=== PATIENT | male | born 2000 | race Caucasian/White ===

== ENCOUNTER 2022-02-22 18:32 | Emergency (ER) | payer OTHER ==
[~2022-02-22] VITALS: Wt 54.4 kg
[~2022-02-22 18:32] MED LIST: AMOXICILLIN500 MG PO; KEFLEX250 MG/5 M PO; MOTRIN400 MG PO
[2022-02-22 18:38] VITALS: BP 112/56
[2022-02-22 20:20] LABS: BASO % 0.2 % (0.0-1.0); EOS % 0.4 % (1.0-4.0); LYMPH # 1.3 10*3/uL (1.3-4.4); MEAN CORPUSCULAR HGB 30.1 pg (27.0-31.0); MEAN CORPUSCULAR HGB CONC 34.6 g/dl (33.0-37.0); MEAN PLATELET VOLUME 10.2 fl (9.6-12.3); MONO # 0.5 10*3/uL (0.1-1.0); MONO % 4.6 % (3.0-9.0); NEUT # 8.9 10*3/uL (2.3-7.9); NEUT % 82.5 % (47.0-73.0); PLATELET COUNT AUTOMATED 209 10*3/uL (130-400); RED BLOOD COUNT 4.71 10*6/uL (4.50-5.90); RED CELL DISTRI WIDTH 11.8 % (0-14.5); WHITE BLOOD COUNT 10.8 10*3/uL (4.8-10.8)
[2022-02-22 20:35] LABS: ALKALINE PHOSPHATASE 158 U/L (45-117); BUN 6 mg/dl (7-24); CHLORIDE 108 mmol/L (98-107); POTASSIUM 3.7 mmol/L (3.5-5.1); SGOT/AST 15 IU/L (3-35); SGPT/ALT 22 U/L (12-78); SODIUM 141 mmol/L (136-145); TOTAL PROTEIN 7.5 gm/dL (6.4-8.2)
[2022-02-22] MEDS ORDERED: AMOXICILLIN500 M2 PO (23:18)
== END 2022-02-22 23:25 | disposition home or self-care (01) ==
LOC: ED 18:32
PROVIDERS: Emergency Medicine
DX: K04.7 Periapical abscess without sinus (principal); K08.89 Other specified disorders of teeth and supporting structures

== ENCOUNTER → 2022-05-22 | Outpatient (CLI) | payer OTHER ==
[~2022-05-22] MED LIST changes: +AMOXICILLIN500 M2 PO
[2022-05-22 16:09] LABS: BASO % 0.8 % (0.0-1.0); EOS # 0.1 10*3/uL (0.0-0.4); EOS % 1.3 % (1.0-4.0); HEMATOCRIT 38.5 % (42.0-52.0); LYMPH # 1.4 10*3/uL (1.3-4.4); LYMPH % 36.6 % (27.0-41.0); MEAN CELL VOLUME 88.5 fl (80.0-94.0); MEAN CORPUSCULAR HGB 30.3 pg (27.0-31.0); MEAN CORPUSCULAR HGB CONC 34.3 g/dl (33.0-37.0); MEAN PLATELET VOLUME 10.5 fl (9.6-12.3); MONO # 0.2 10*3/uL (0.1-1.0); MONO % 5.2 % (3.0-9.0); NEUT # 2.2 10*3/uL (2.3-7.9); NEUT % 55.8 % (47.0-73.0); PLATELET COUNT AUTOMATED 173 10*3/uL (130-400); RED BLOOD COUNT 4.35 10*6/uL (4.50-5.90); RED CELL DISTRI WIDTH 11.9 % (0-14.5); WHITE BLOOD COUNT 3.9 10*3/uL (4.8-10.8)
[2022-05-22 16:24] LABS: ALKALINE PHOSPHATASE 128 U/L (45-117); BUN 7 mg/dl (7-24); CHLORIDE 109 mmol/L (98-107); CREATININE 0.77 mg/dL (0.70-1.30); POTASSIUM 3.8 mmol/L (3.5-5.1); SGOT/AST 8 IU/L (3-35); SGPT/ALT 13 U/L (12-78); SODIUM 141 mmol/L (136-145); T3 UPTAKE 35 % (31-39); THYROXINE (T4) TOTAL 10.9 ug/dl (4.5-12.1); TOTAL PROTEIN 6.8 gm/dL (6.4-8.2)
[2022-05-22 16:32] LABS: THYROID STIM HORMONE (HS) 0.934 uIU/ml (0.358-4.75)
[2022-05-23 11:07] LABS: HBSAG Negative (Negative); HEP B CORE AB, IGM Negative (Negative); HEPATITIS C ANTIBODY <0.1 (0.0-0.9)
== END | disposition home or self-care (01) ==
LOC: LAB 15:33
PROVIDERS: ATTEND Pediatrics
DX: M54.50 Low back pain, unspecified (principal); R10.9 Unspecified abdominal pain

== ENCOUNTER 2022-11-21 09:37 | Emergency (ER) | payer OTHER ==
[~2022-11-21] VITALS: Ht 170.1 cm; Wt 49.9 kg
[2022-11-21 09:58] VITALS: BP 124/62
[2022-11-21] MEDS ORDERED: NAPROXEN500 M1 PO (10:38)
[2022-11-21] MEDS ORDERED: CLEOCIN HCL150 MG PO (10:38)
== END 2022-11-21 10:44 | disposition home or self-care (01) ==
LOC: ED 09:37
DX: K08.89 Other specified disorders of teeth and supporting structures (principal)

== ENCOUNTER → 2023-06-19 | Outpatient (CLI) | payer OTHER ==
[~2023-06-19] MED LIST changes: +AMOX-CLAV 875-1 EACH PO; +CLEOCIN HCL150 MG PO; +NAPROXEN500 M1 PO
== END | disposition home or self-care (01) ==
LOC: WOUNDCARE 00:58
PROVIDERS: ATTEND Nurse Practitioner Family
DX: T81.89XA Other complications of procedures, not elsewhere classified, initial encounter (principal); K08.89 Other specified disorders of teeth and supporting structures; L02.01 Cutaneous abscess of face; D72.9 Disorder of white blood cells, unspecified; D64.9 Anemia, unspecified; F09 Unspecified mental disorder due to known physiological condition; K12.2 Cellulitis and abscess of mouth; R41.89 Other symptoms and signs involving cognitive functions and awareness; K21.9 Gastro-esophageal reflux disease without esophagitis; F17.200 Nicotine dependence, unspecified, uncomplicated; Y92.238 Other place in hospital as the place of occurrence of the external cause; Y83.8 Other surgical procedures as the cause of abnormal reaction of the patient, or of later complication, without mention of misadventure at the time of the procedure

== ENCOUNTER 2024-06-27 21:30 | Emergency (ER) | payer SELFPAY ==
[~2024-06-27] VITALS: Ht 170.1 cm; Wt 49.9 kg
[2024-06-27 21:37] VITALS: BP 113/55
[2024-06-27] MEDS ORDERED: VIBRAMYCIN100 MG PO (21:53)
[2024-06-27] MEDS ORDERED: Doxycycline Hyclate 100 MG CAP PO ONE (21:55)
== END 2024-06-27 22:10 | disposition home or self-care (01) ==
LOC: ED 21:30
DX: A26.0 Cutaneous erysipeloid (principal); F17.290 Nicotine dependence, other tobacco product, uncomplicated; Z79.2 Long term (current) use of antibiotics